=== PATIENT | female | born 1995 | race Caucasian/White ===

== ENCOUNTER 2022-06-10 18:30 | Emergency (ER) | payer BC ==
[2022-06-10 18:36] VITALS: RESP 18; BMI 23.9
[2022-06-10 22:21] LABS: HCG,QUALITATIVE URINE Positive
[2022-06-10 22:36] LABS: EPI CELLS >36 /uL (0-25.1); HYALINE CASTS 5 /uL (0-3.1); URINE APPEARANCE CLOUDY; URINE BACTERIA 1513 /uL (0-1359); URINE BILIRUBIN NEGATIVE (NEGATIVE); URINE COLOR YELLOW; URINE GLUCOSE (UA) NEGATIVE (NEGATIVE); URINE KETONE 4+ (NEGATIVE); URINE LEUK ESTERASE NEGATIVE (NEGATIVE); URINE NITRITE NEGATIVE (NEGATIVE); URINE PROTEIN 1+ (NEGATIVE); URINE RBC 61 /uL (0-23.9); URINE WBC 37 /uL (0-25.8)
[2022-06-10 22:45] LABS: BASO % 1.1 % (0-2.0); EOS % 2.5 % (0-4.5); HEMATOCRIT 40.3 % (32.4-45.2); HEMOGLOBIN 13.5 GM/dL (10.7-15.3); LYMPH % 28.9 % (8-40); MCH 27.4 pg (25.7-33.7); MCHC 33.5 g/dl (32.0-36.0); MEAN CELL VOLUME 81.6 fl (80-96); MEAN PLT VOLUME 6.7 fl (7.5-11.1); MONO % 10.3 % (3.8-10.2); NEUT % 57.2 % (42.8-82.8); PLATELET COUNT 328 10^3/uL (134-434); RBC 4.94 M/mm3 (3.60-5.2); RDW 13.9 % (11.6-15.6); WHITE BLOOD COUNT 4.8 K/mm3 (4.0-10.0)
[2022-06-10 23:14] LABS: CALCIUM 9.7 mg/dL (8.5-10.1)
[2022-06-10 23:15] LABS: ALBUMIN 4.2 g/dl (3.4-5.0); BLOOD UREA NITROGEN 7.8 mg/dL (7-18)
[2022-06-10 23:18] LABS: CREATININE 0.5 mg/dL (0.55-1.3)
[2022-06-10 23:19] LABS: BILIRUBIN,TOTAL 0.5 mg/dL (0.2-1)
[2022-06-10 23:20] LABS: TOT PROT 8.1 g/dl (6.4-8.2)
[2022-06-11] MEDS ORDERED: CEPHALEXIN MONOHYDRATE 500 MG CAPSULE (UD) PO ONE (00:03)
[2022-06-11] MEDS ORDERED: CEPHALEXIN MONOHYDRATE 500 MG CAPSULE (UD) ONE (00:16)
[2022-06-11 00:43] VITALS: BP 123/63; PULSE 82; TEMP 97.7
== END 2022-06-11 01:05 | disposition home or self-care (01) ==
LOC: JER 18:30
DX: R11.2 Nausea with vomiting, unspecified (principal)
CPT/HCPCS: 36415; 76817-TC; 80053; 81003; 83690; 84702; 84703; 85025; 87077; 87086; 99284-25

== ENCOUNTER 2025-01-31 19:19 | Emergency (ER) | payer BC ==
[2025-01-31 19:43] VITALS: BP 115/77; PULSE 93; RESP 18; TEMP 98; BMI 23.9
[2025-01-31] MEDS ORDERED: METOCLOPRAMIDE HCL INJECTION 10 MG/2 ML VIAL ONE (21:11)
[2025-01-31] MEDS ORDERED: ACETAMINOPHEN 500 MG TABLET (FP) ONE (21:11)
[2025-01-31 21:39] LABS: GLUCOSE,RANDOM 80.0 mg/dL (74-106); TOT PROT 8.8 g/dl (6.4-8.2)
[2025-01-31 21:40] LABS: CO2 24.0 mmol/L (21-32)
[2025-01-31 21:42] LABS: ALK PHOS 43.0 U/L (40-150)
[2025-01-31 21:42] LABS: EPI CELLS 21 /uL (0-25.1); HYALINE CASTS 1 /uL (0-3.1); URINE APPEARANCE CLEAR; URINE BACTERIA 79 /uL (0-1359); URINE BILIRUBIN NEGATIVE (NEGATIVE); URINE COLOR YELLOW; URINE GLUCOSE (UA) NEGATIVE (NEGATIVE); URINE KETONE TRACE (NEGATIVE); URINE LEUK ESTERASE NEGATIVE (NEGATIVE); URINE NITRITE NEGATIVE (NEGATIVE); URINE PROTEIN 1+ (NEGATIVE); URINE RBC 102 /uL (0-23.9); URINE UROBILINOGEN 0.2 mg/dL (0.2-1.0); URINE WBC 8 /uL (0-25.8)
[2025-01-31 21:43] LABS: HCG,QUALITATIVE URINE Negative
[2025-01-31 21:44] LABS: CREATININE 0.49 mg/dL (0.55-1.3); SGOT/AST 54.0 U/L (5-34); SGPT/ALT 25.0 U/L (0-55)
[2025-01-31 22:45] LABS: HCV DIAGNOSTIC IN-HOUSE W/RFLX NON-REACTIVE (NONREACTIVE); HIV INTERPRETATION NEGATIVE (NEGATIVE)
[2025-01-31] MEDS: ACETAMINOPHEN 500 MG TABLET (FP) PO ONE (22:54)
[2025-01-31] MEDS: LACTATED RINGERS SOLUTION 1000 ML INFUS.BAG IV ONE (22:54)
[2025-01-31] MEDS: METOCLOPRAMIDE HCL INJECTION 10 MG/2 ML VIAL IVPUSH ONE (22:55)
[2025-01-31] MEDS ORDERED: MAG HYDROX/AL HYDROX/SIMETH 30 ML UNIT-DOSE CUP ONE (23:11)
[2025-01-31] MEDS ORDERED: FAMOTIDINE 20 MG/50 ML IVPB 20 MG/50 ML MG IVPB ONE (23:11)
[2025-02-01 00:42] LABS: ABSOLUTE IMMATURE GRANULOCYTES 0.02 x10^3/uL (0.0-0.031); BASOPHILS # 0.04 x10^3/uL (0.01-0.08); EOSINOPHIL % 2.0 % (0.7-5.8); EOSINOPHILS # 0.11 x10^3/uL (0.04-0.36); MCHC 32.4 g/dl (32.2-35.5); MEAN CELL VOLUME 86.8 fl (79.4-94.8); MEAN PLT VOLUME 8.9 fl (9.4-12.3); MONOCYTE # 0.40 x10^3/uL (0.24-0.86); MONOCYTE % 7.1 % (4.7-12.5); RDW 12.7 % (12.1-16.8)
[2025-02-01] MEDS: FAMOTIDINE 20 MG/50 ML IVPB 20 MG/50 ML MG IVPB ONE (00:57)
[2025-02-01] MEDS: MAG HYDROX/AL HYDROX/SIMETH 30 ML UNIT-DOSE CUP PO ONE (00:57)
== END 2025-02-01 01:50 | disposition home or self-care (01) ==
LOC: JER 19:19
PROC: 3E033GC Introduction of Other Therapeutic Substance into Peripheral Vein, Percutaneous Approach (ICD-10-PCS; principal; 2025-01-31)
DX: O26.891 Other specified pregnancy related conditions, first trimester (principal); R10.31 Right lower quadrant pain; R10.32 Left lower quadrant pain; R42 Dizziness and giddiness; R55 Syncope and collapse; R53.83 Other fatigue; O99.891 Other specified diseases and conditions complicating pregnancy; M79.10 Myalgia, unspecified site; R51.9 Headache, unspecified; O21.9 Vomiting of pregnancy, unspecified; Z3A.01 Less than 8 weeks gestation of pregnancy
CPT/HCPCS: 36415; 80053; 81003; 83690; 84703; 85025; 86803; 87077; 87086; 87389; 87637-QW; 93005; 93010; 99284-25